=== PATIENT | male | born 1985 | race Caucasian/White ===

== ENCOUNTER 2024-03-08 08:41 | Emergency (ER) | payer BC, SELFPAY ==
[2024-03-08 08:45] VITALS: BP 130/85; PULSE 57; RESP 16; TEMP 36.2; O2SAT 100; BMI 26.4
--- NOTE | 2024-03-08 09:32 | ED_ITS ---
HPI - General Adult General Date Seen: 03/08/24 Chief complaint: Sore Throat Stated complaint: fish bone caught in throat Time Seen by Provider: 03/08/24 09:31 History of Present Illness HPI narrative: 38 yo M with a recent case of mononucleosis, now improving, presents to the ER today with discomfort in his right side of his throat that is been present since last Monday. He is worried that he probably has a piece of salmon bone stuck in his throat. He did notice that there was a bone in the same he was eating. He is not sure if he swallowed it or not. While eating he began to have a foreign body sensation. It has been present ever since then. It is located on the right side of his neck, just below the angle of the mandible. It is on the inside. It really only is noticeable when he turns his neck just the wrong direction or when he swallows in a certain way. He is not having any diffuse neck pain. No trouble swallowing. No blockage in his throat. No trouble breathing. No cough. No fever. He is getting over mono and knows that his right tonsil is bigger than his left. No other ongoing symptoms from that. Related Data Home Medications ?Medication ?Instructions ?Recorded ?Confirmed azelastine 205.5 mcg (0.15 %) 1 spray intranasal QHS 04/05/22 12/11/22 nasal spray finasteride 1 mg tablet 1 mg PO QDAY 04/05/22 03/08/24 fluticasone propionate 110 1 puff inhalation DAILY PRN 04/05/22 03/08/24 mcg/actuation HFA aerosol inhaler insulin aspart U-100 100 unit/mL See Rx Instructions continuous 04/05/22 03/08/24 subcutaneous solution (Novolog subcutaneous infusion .COMPLEX U-100 Insulin aspart) omeprazole 20 mg capsule,delayed 20 mg PO QDAY 04/05/22 03/08/24 release azelastine 137 mcg (0.1 %) nasal intranasal 03/08/24 spray rosuvastatin 10 mg tablet 10 mg PO QPM 03/08/24 03/08/24 Allergies Allergy/AdvReac Type Severity Reaction Status Date / Time No Known Drug Allergies Allergy Verified 04/05/22 07:58 PFSH PFSH Social History Smoking Status: Never smoker How often do you have a drink containing alcohol: monthly or less How often do you have six or more drinks on one occasion: Never AUDIT-C Alcohol total score: 1 Non-prescribed substance use: denies use Exam Narrative: Exam Narrative: Constitutional: Appears well-developed and well-nourished. Alert. Conversant. Non toxic. HENT: Head: Atraumatic. Nose: Nose normal. Mouth/Throat: Oral mucosa is clear and moist. no trismus. Pharynx normal. Uvula midline. Phonation normal. There is mild tonsillar erythema but no exudates. Overall tonsils are fairly small and not really hypertrophy today. Posterior or pharyngeal wall looks normal. I am not able to visualize around the corner behind his tongue to see down to his epiglottis or piriform recess. Eyes: Conjunctivae normal. EOM normal. Pupils equal, round, and reactive to light. No scleral icterus. Neck: Normal range of motion. Neck supple. No tracheal deviation present. Cardiovascular: Normal rate, regular rhythm. No gallop. No friction rub. No murmur heard. Pulmonary/Chest: Effort normal. No stridor. No respiratory distress. No wheezes. No rales. No rhonchi . Musculoskeletal: RUE: Normal range of motion. No tenderness. No deformity LUE: Normal range of motion. No tenderness. No deformity RLE: Normal range of motion. No edema. No tenderness. No deformity LLE: Normal range of motion. No edema. No tenderness. No deformity Lymph: No cervical adenopathy. Neurological: Alert and oriented to person, place, and time. Normal strength. CN II-VII intact. No sensory deficit. GCS eye subscore is 4. GCS verbal subscore is 5. GCS motor subscore is 6. Normal coordination Skin: Skin is warm and dry. No rash noted. No pallor. Normal capillary refill. Psychiatric: Normal mood. Normal affect. Const: Vital Signs, click to edit/add: Vital Signs - 24 hr 03/08/24 08:45 03/08/24 10:54 Temperature 97.1 F L Pulse Rate [Pulse Oximeter] 57 L 62 Respiratory Rate 16 16 Blood Pressure [Ri ght Upper Arm] 130/85 Pulse Oximetry 100 98 Oxygen Delivery Me thod Room Air Room Air Course Vital Signs Vital signs: Initial Vital Signs Temperature 97.1 F L 03/08/24 08:45 Temperature Source Temporal Artery Scan 03/08/24 08:45 Pulse Rate 57 L 03/08/24 08:45 Respiratory Rate 16 03/08/24 08:45 Blood Pressure 130/85 03/08/24 08:45 Blood Pressure Mean 100 03/08/24 08:45 Blood Pressure Position Sitting 03/08/24 08:45 Pulse Oximetry 100 03/08/24 08:45 Oxygen Delivery Method Room Air 03/08/24 08:45 Vital Signs Temperature 97.1 F L 03/08/24 08:45 Pulse Rate 57 L 03/08/24 08:45 Respiratory Rate 16 03/08/24 08:45 Blood Pressure 130/85 03/08/24 08:45 Pulse Oximetry 100 03/08/24 08:45 Oxygen Delivery Method Room Air 03/08/24 08:45 Temperature 97.1 F L 03/08/24 08:45 Pulse Rate 62 03/08/24 10:54 Respiratory Rate 16 03/08/24 10:54 Blood Pressure 130/85 03/08/24 08:45 Pulse Oximetry 98 03/08/24 10:54 Oxygen Delivery Method Room Air 03/08/24 10:54 Medical Decision Making MDM Narrative Medical decision making narrative: Very pleasant generally healthy 38-year-old presenting to the ER today with concern for a fishbone in the right side of his throat/near his pharynx. Has been present with a foreign body sensation since he ate salmon for dinner 3 nights ago on Monday. Also of note he is getting over mono has been recovering from enlarged tonsils. Tonsils are really not very big on my clinical exam today but there may be some enlargement of the adenoid that I cannot visualize. No clear external clinical evidence based on external exam or pharyngeal exam that there is truly a foreign body present. Nonetheless certainly would need further evaluation with either fiberoptic laryngoscopy here in the ER or ENT consultation. Because my fiberoptic scope would be diagnostic but not therapeutic, I feel that he be better off to be seen directly by ENT. I contacted Dr. Oakes. He requests that we obtain a soft tissue neck x-ray. This is completed here in the ER and is normal by my read as well as by Dr. Oakes. Dr. Oakes came to the ER to evaluate this patient and did do an exam and found no foreign body. ENT recommends that the patient can be discharged with careful watchful waiting. If symptoms are not resolved within the next 3-5 days, patient should follow-up in the ENT clinic for further evaluation. Discussed this plan of care the patient and he is agreeable. We discussed the unlikely possibility for worsening symptoms or developing infection and precautions for return to the ER were reviewed. Questions answered. Patient discharged in stable condition. Imaging Data XR neck soft tissue: Attestation: I have reviewed the pertinent imaging results. My impression: No visualized foreign body. Normal soft tissues. No gas in the soft tissue. Epiglottis normal. Radiologist's impression: IMPRESSION: There is no definitively visualized radiopaque foreign body on these radiographs, however, CT would be more sensitive. Discharge Plan Discharge Clinical Impression: Feeling of foreign body in throat Instructions: Foreign Body in the Pharynx (ED) Additional Instructions: As we discussed, please come back to the ER right away if you have worsening symptoms (for instance, worsening pain, trouble swallowing, swelling in your throat, fever). If you are not completely improved by Monday or Monday, please follow-up with Dr. Oakes, the ENT doctor. To make an appoint with Dr. Oakes, you can call [phone] . On some week days Dr. Oakes is here in [place] and on other days he is in [place] Prescriptions: No Action insulin aspart U-100 [Novolog U-100 Insulin aspart] 100 unit/mL solution See Rx Instructions continuous subcutaneous infusion .COMPLEX Patient Comments: via pump Rx Instructions: via continuous subcutaneous infusion; omeprazole 20 mg capsule,delayed release(DR/EC) 20 mg PO QDAY fluticasone propionate 110 mcg/actuation HFA aerosol inhaler 1 puff inhalation DAILY PRN azelastine 205.5 mcg (0.15 %) spray,non-aerosol 1 spray intranasal QHS Rx Instructions: administer into each nostril unknown strength finasteride 1 mg tablet 1 mg PO QDAY azelastine 137 mcg (0.1 %) spray,non-aerosol INTRANASAL Patient Comments: [NO ORIGINAL SIG] rosuvastatin 10 mg tablet 10 mg PO QPM Follow Up/Referrals: Provider,Not a Local [Non-Staff] - Stand Alone Forms: [facility] ([facility] Info Instructions
--- NOTE | 2024-03-08 09:40 | CRLHL7_ITS ---
For Patients: As a result of the Century Cures Act, medical imaging exams and procedure reports are released immediately into your electronic medical record. You may view this report before your referring provider. If you have questions, please contact your health care provider. INDICATION: FISH BONE IN THROAT, RT SIDE. TECHNIQUE: Soft tissue neck two views. COMPARISON: None.. FINDINGS: No definitively visualized radiopaque foreign body. The airway is patent and normal. Epiglottis is normal. The retropharyngeal soft tissues are normal. No obvious masses. The visualized cervical spine demonstrates no significant findings. IMPRESSION: There is no definitively visualized radiopaque foreign body on these radiographs, however, CT would be more sensitive. Dictated by Sahil Clements MD @ 03/08/2024 10:04:47 AM (Electronically Signed)
[2024-03-08 10:54] VITALS: PULSE 62; RESP 16; O2SAT 98
== END 2024-03-08 10:55 | disposition home or self-care (01) ==
PROVIDERS: Emergency Provider Emergency Medicine; PCP Nurse Practitioner Adult Health
DX: T17.228A Food in pharynx causing other injury, initial encounter (principal)
CPT/HCPCS: 70360; 99282; 99283